=== PATIENT | male | born 2000 | race Caucasian/White ===

== ENCOUNTER 2020-09-27 03:49 | Emergency (ER) | payer OTHER, SELFPAY ==
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
--- NOTE | ~2020-09-27 | XR_ITS ---
EXAMINATION: XR FOREARM, LEFT CLINICAL INFORMATION: Pain and localized swelling COMPARISON: None TECHNIQUE: AP and lateral views of the left forearm were obtained. XR/XR forearm LT 2V FINDINGS/IMPRESSION: No acute fracture or dislocation. There is soft tissue swelling posterior to the ulna. No radiopaque foreign bodies.
[2020-09-27 04:20] VITALS: BP 130/72; BP 158/84; PULSE 90; PULSE 97; RESP 17; TEMP 36.9; O2SAT 98
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
[2020-09-27 04:57] VITALS: BP 130/66; PULSE 82; RESP 16; O2SAT 97
[2020-09-27] MEDS: Diphth,Pertus(ACell),Tet Adult 0.5 ML SYRINGE IM (05:04)
[2020-09-27 05:05] LABS: Basophils Absolute Auto 0.1 X10*3/uL (0.0-0.2); Basophils Percent Auto 0.4 % (0-2); Eosinophils Absolute Auto 0.1 X10*3/uL (0.0-0.4); Eosinophils Percent Auto 0.8 % (0-4); Hematocrit 46.3 % (42-52); Hemoglobin 15.4 g/dl (14.0-18.0); Imm Gran Abs Auto 0.04 X10*3/uL (0.00-0.03); Imm Gran Pct Auto 0.3 % (0.0-0.4); Lymphocytes Absolute Auto 1.4 X10*3/uL (1.2-4.9); Lymphocytes Percent Auto 11.5 % (20-40); MANUAL DIFF FLAG NO; Mean Corpuscular HGB Conc 33.3 g/dl (31.0-36.0); Mean Corpuscular Hemoglobin 29.3 pg (27.0-33.0); Mean Platelet Volume 10.1 fL (9.4-12.4); Monocytes Absolute Auto 0.5 X10*3/uL (0.1-1.2); Monocytes Percent Auto 4.3 % (2-11); Neutrophils Absolute Auto 9.7 X10*3/uL (2.0-8.3); Neutrophils Percent Auto 82.7 % (45-73); Platelet Count 305 X10*3/uL (160-400); Red Blood Count 5.26 X10*6/uL (4.60-5.80); Red Cell Distribution Width 12.9 % (11.0-16.0); White Blood Count 11.7 X10*3/uL (4.8-10.8)
[2020-09-27 05:23] LABS: Prothrombin Time 12.1 SEC (10.8-13.0)
[2020-09-27 05:25] LABS: Ethanol 175 mg/dL
[2020-09-27 05:31] LABS: Alanine Aminotransferase 29 U/L (0-40); Albumin Level 4.9 g/dL (3.5-5.0); Alkaline Phosphatase 74 U/L (39-117); Anion Gap 18 (12-20); Aspartate Amino Transferase 28 U/L (5-37); Bilirubin Total 0.3 mg/dL (0.0-1.0); Blood Urea Nitrogen 13 mg/dL (9-16); Calcium 9.5 mg/dL (8.4-10.2); Carbon Dioxide 22 mmol/L (22-29); Chloride 106 mmol/L (96-108); Creatinine Clr Calc Pharmacy 111.5; Estimated Glomerular Filt Rate > 60; Glucose Random 102 mg/dL (60-115); Potassium 4.2 mmol/L (3.3-5.1); Sodium 142 mmol/L (135-145)
[2020-09-27 06:00] VITALS: BP 129/72; PULSE 99; RESP 16; O2SAT 97
[2020-09-27] MEDS: iohexoL 350 MG/ML 100 ML INFUS..BTL 85 ML IV (06:10)
== END 2020-09-27 07:03 | disposition home or self-care (01) ==
PROVIDERS: Emergency Provider Student in an Organized Health Care Education/Training Program; PCP Pediatrics Adolescent Medicine
DX: S50.12XA Contusion of left forearm, initial encounter (principal); V47.5XXA Car driver injured in collision with fixed or stationary object in traffic accident, initial encounter; Y93.9 Activity, unspecified; Y92.9 Unspecified place or not applicable; Y99.9 Unspecified external cause status
CPT/HCPCS: 36415; 70450; 71260; 72125; 73090; 74177; 80053; 82077; 85025; 85610; 90471; 90715; 96374; 99285; Q9967

== ENCOUNTER 2020-12-11 11:43 | Outpatient (REF) | payer OTHER, SELFPAY ==
[2020-12-11 12:44] LABS: COVID-19 Test Negative (Negative)
== END 2020-12-11 11:44 | disposition home or self-care (01) ==
LOC: HO.LAB 11:43
PROVIDERS: Visit Provider Internal Medicine
DX: Z20.822 Contact with and (suspected) exposure to COVID-19 (principal)
CPT/HCPCS: 36415; 87635; C9803

== ENCOUNTER 2021-04-09 11:50 | Outpatient (REF) | payer OTHER, SELFPAY ==
[2021-04-09 13:06] LABS: COVID-19 Test Negative (Negative)
== END 2021-04-09 11:51 | disposition home or self-care (01) ==
LOC: HO.LAB 11:50
PROVIDERS: Visit Provider Internal Medicine
DX: Z20.822 Contact with and (suspected) exposure to COVID-19 (principal)
CPT/HCPCS: 36415; 87635; C9803